=== PATIENT | male | born 1995 | race African-American/Black ===

== ENCOUNTER 2018-06-01 17:34 | Emergency (ER) | payer MEDICAID ==
[~2018-06-01] VITALS: Ht 170.2 cm; Wt 152.0 kg
[2018-06-01 17:54] VITALS: BP 159/92
== END 2018-06-01 21:13 | disposition left against medical advice (07) ==
LOC: ER 17:34
DX: R21 Rash and other nonspecific skin eruption (principal); L81.9 Disorder of pigmentation, unspecified; R78.81 Bacteremia
CPT/HCPCS: 99281